=== PATIENT | female | born 1950 | race African-American/Black ===

== ENCOUNTER 2017-04-03 16:43 | Emergency (ER) | payer OTHER ==
[~2017-04-03] VITALS: Ht 167.6 cm; Wt 105.2 kg
[~2017-04-03 16:43] MED LIST: ALBUTEROL17 GM INH; BACTRIM DS TABL1 TA1 PO; FLONASE16 GM; IBUPROFEN800 MG PO; NO MEDICATIONS; PREDNISONE PO
[2017-04-03] MEDS ORDERED: METFORMIN (16:58)
[2017-04-03] MEDS ORDERED: ALLERGY RELIEF10 M1 (16:58)
[2017-04-03] MEDS ORDERED: LISINOPRIL (16:58)
== END 2017-04-03 17:48 | disposition home or self-care (01) ==
LOC: SED 16:43
DX: I88.9 Nonspecific lymphadenitis, unspecified (principal); E11.9 Type 2 diabetes mellitus without complications; I10 Essential (primary) hypertension; J45.909 Unspecified asthma, uncomplicated; Z88.1 Allergy status to other antibiotic agents
CPT/HCPCS: 99282